=== PATIENT | male | born 1965 | race Caucasian/White ===

== ENCOUNTER 2016-07-07 11:34 | Emergency (ER) | payer OTHER ==
--- NOTE | 2016-07-07 12:10 | ERNOTE ---
Headache ER HPI - General Presenting Symptoms: headache Time Seen by Provider: 07/07/16 11:57 Source: patient Exam Limitations: no limitations - Immun/Allergies/Home Medications Immunizations: IMMUNIZATION HX Immunizations Up to Date Yes Allergies/Adverse Reactions: Allergies ampicillin [Ampicillin] Allergy (Verified 07/07/16 11:42) Home Medications: HOME MEDICATIONS Butalb/Acetaminophen/Caffeine [Fiorinal] 1 tab PO BID #30 tablet 07/07/16 [Last Taken Unknown] - History of Present Illness Narrative: left sided migraine headache with photophobia and some left eye lacrimation for two days Review of Systems - Review of Systems Constitutional: Present: no symptoms reported EYE: Present: see HPI ENT: Present: no symptoms reported Respiratory: Present: no symptoms reported Cardiology: Present: no symptoms reported Gastrointestinal/Abdominal: Present: no symptoms reported Genitourinary: Present: no symptoms reported Musculoskeletal: Present: no symptoms reported Neurological: Present: See HPI - Patient's Past Medical History Patient History - Medical: Headache, Migraines, Other Patient History - Cardiac/Respiratory: Other Patient History - Cancer: No Hx of Cancer Patient History - Surgical Procedures: Other - Social History Smoking Status: Current every day smoker Have you smoked in the past 12 months: Yes - Immunizations Immunizations Up to Date: Yes Physical Exam - Physical Exam General Appearance: Present: wd/wn, alert, no apparent distress Eye Exam: Normal inspection: left - lacrimating from left eye, PERRL: bilateral , EOMI: bilateral Ears, Nose, Throat: Present: normal ENT inspection, normal pharynx Neck: Present: normal inspection, nontender, supple Respiratory: Present: no respiratory distress, normal breath sounds, no accessory muscle use, chest nontender, lungs clear Cardiovascular/Chest: Present: regular rate, rhythm, no murmur, normal peripheral pulses Extremity Exam: Present: normal inspection, non-tender, normal range of motion Neurological Exam: Present: alert, oriented, normal mood/affect, medical claims analyst II-XII nml as tested ED Progress - Vital Signs Patient's Vital Signs:: I have reviewed the patient's vital signs. Vital Signs: Vital Signs 07/07/16 11:39 Temperature 36.6 C Pulse Rate 80 Respiratory 14 Rate Blood Pressure 133/79 O2 Sat by Pulse 100 Oximetry - Progress/Reassessment Chief Complaint: Headache Departure Clinical Impression: Migraine Qualifiers: Migraine type: unspecified Status migrainosus presence: without status migrainosus Intractability: not intractable Qualified Code(s): G43.909 - Migraine, unspecified, not intractable, without status migrainosus - Departure Disposition: Home self-care Condition: Good Instructions: Migraine Headache, [place] Prescriptions: Butalb/Acetaminophen/Caffeine [Fiorinal] 1 tab PO BID #30 tablet
[2016-07-07] MEDS ORDERED: KETOROLAC TROMETHAMINE 60 MG/2 ML VIAL IM ONE ×2 (12:18→12:33)
[2016-07-07 12:59] VITALS: BP 111/79
== END 2016-07-07 12:51 | disposition home or self-care (01) ==
LOC: ER 11:34
DX: G43.909 Migraine, unspecified, not intractable, without status migrainosus (principal); Z72.0 Tobacco use

== ENCOUNTER 2018-04-26 00:18 | Observation (INO) ==
--- NOTE | 2018-04-26 00:27 | ERNOTE ---
<Guillermo Haas - Last Filed: 04/26/18 07:48> Psychological HPI - General Chief Complaint: Drug Overdose Source: Reports: EMS Exam Limitations: Reports: clinical condition - Immun/Allergies/Home Medications Allergies/Adverse Reactions: Allergies Penicillins Allergy (Severe, Verified 04/26/18 00:33) Shortness of Breath ampicillin [Ampicillin] Allergy (Intermediate, Verified 04/26/18 00:33) Rash Home Medications: HOME MEDICATIONS Butalb/Acetaminophen/Caffeine [Fiorinal] 1 tab PO BID #30 tablet 07/07/16 [Last Taken Unknown] Diltiazem HCl [Diltiazem 24Hr Cd] 120 mg PO DAILY 07/07/16 [Last Taken Unknown] FLUoxetine HCL [Fluoxetine HCl] 20 mg PO DAILY 07/07/16 [Last Taken Unknown] QUEtiapine FUMARATE [Seroquel] 100 mg PO DAILY 07/07/16 [Last Taken Unknown] Benzonatate [Tessalon Perle] 100 mg PO TID #30 cap 04/07/18 [Last Taken Unknown] Doxycycline Hyclate [Vibratab] 100 mg PO BID #20 tab 04/07/18 [Last Taken Unknown] - History of Present Illness Narrative: Pt told EMS that he took 3 handsful of Seroquel 100mg tablets approx 1 hour [employer]. He has also been drinking alcohol of unknown quantity. Time Seen by Provider: 04/26/18 00:23 Arrived by: Reports: ambulance, called by friend/other Onset/duration: Reports: sudden onset Intent: Reports: suicide Mechanism: Reports: overdose Prior Treament: Reports: similar symptoms before Review of Systems - Narrative Narrative: ROS unavailable due to pt's decreased mental status Medical History (Last Reviewed 04/26/18 @ 03:25 by Guillermo Haas DO) Bipolar 1 disorder Depression PTSD (post-traumatic stress disorder) TBI (traumatic brain injury) Surgical History: Surgical History (Last Reviewed 04/26/18 @ 03:25 by Guillermo Haas DO) History of radiofrequency ablation procedure for cardiac arrhythmia Family History: Family History (Last Reviewed 04/26/18 @ 03:25 by Guillermo Haas DO) Mother Heart problem Social History: Preferred Language Palestinian Smoking Status Current every day smoker No Social History Section defined Psychological Exam - Exam General Appearance: Present: lethargic - continues to be able to secure his own airway. Head Exam: Present: normal inspection, no evidence of injury Neurological: Present: responds to pain Behavior/Eye Contact/Speech: Present: avoids eye contact - keeps eyes closed generally Ears, Nose, Throat: Present: normal ENT inspection Neck: Present: normal inspection, nontender, supple Respiratory: Present: no respiratory distress, no accessory muscle use Cardiovascular/Chest: Present: regular rate, rhythm, no murmur Gastrointestinal/Abdominal: Present: normal bowel sounds, no organomegaly Extremity Exam: Present: normal inspection, normal range of motion, no edema Skin Exam: Present: normal color, warm/dry Lymphatic Exam: Present: no adenopathy Progress - Results and Orders Patient's Lab Results:: I have reviewed the patient's lab results. Results and Orders: Laboratory Tests 04/26/18 04/26/18 04/26/18 00:38 00:38 00:53 WBC 6.2 Hgb 12.2 L Hct 36.9 L Plt Count 218 Sodium 145 H Potassium 3.4 Chloride 107 H BUN 10 Creatinine 0.61 Random Glucose 96 Calcium 8.3 AST 16 ALT 16 L Urine pH 6.0 Ur Specific [place] <=1.005 Urine Blood Negative Urine Nitrate Negative Ur Leukocyte Esterase Negative Salicylates 3.0 Urine Opiates Screen Acetaminophen Less than 0.2 L Barbiturate Screen Ur Phencyclidine Scrn Urine Amphetamine U Benzodiazepines Scrn Urine Cocaine Screen Urine Marijuana (THC) Ethyl Alcohol 76.0 H 04/26/18 00:53 WBC Hgb Hct Plt Count Sodium Potassium Chloride BUN Creatinine Random Glucose Calcium AST ALT Urine pH Ur Specific [place] Urine Blood Urine Nitrate Ur Leukocyte Esterase Salicylates Urine Opiates Screen Negative Acetaminophen Barbiturate Screen Negative Ur Phencyclidine Scrn Negative Urine Amphetamine Negative U Benzodiazepines Scrn Negative Urine Cocaine Screen Negative Urine Marijuana (THC) Positive H Ethyl Alcohol - Vital Signs Patient's Vital Signs:: I have reviewed the patient's vital signs. - EKG EKG #1 EKG: NSR, premature ventricular contraction EKG read: Interp. by me - Progress/Reassessment Progress Note-Subjective: 04/26/18 07:[address] Cee at the [facility] and was willing to accept the patient but the patient was not able to wake up enough to make the decision to go voluntarily. Dr. Cee stated that as soon as the patient is awake enough to make that decision they will talk with us again. 04/26/18 07:[address] Stover at shift change pending pt becoming awake enough to make a decision on voluntarily going to the [facility] for psychiatric care. - Transfer of Care Physician Sign Out: Guillermo Haas Receiving Physician: Aleksandar Stover Expected Disposition: Transfer Time Seen by Provider: 04/26/18 00:23 Departure Clinical Impression: Depression Deliberate medication overdose Qualifiers: Encounter type: initial encounter Qualified Code(s): T50.902A - Poisoning by unspecified drugs, medicaments and biological substances, intentional self-harm, initial encounter - Departure Disposition: Still a patient Condition: Fair <Aleksandar Stover - Last Filed: 04/26/18 09:33> Medical History (Last Reviewed 04/26/18 @ 03:25 by Guillermo Haas DO) Bipolar 1 disorder Depression PTSD (post-traumatic stress disorder) TBI (traumatic brain injury) Surgical History: Surgical History (Last Reviewed 04/26/18 @ 03:25 by Guillermo Haas DO) History of radiofrequency ablation procedure for cardiac arrhythmia Family History: Family History (Last Reviewed 04/26/18 @ 03:25 by Guillermo Haas DO) Mother Heart problem Social History: Preferred Language Palestinian Smoking Status Current every day smoker Alcohol Use occasionally Drug Use marijuana No Social History Section defined Progress - Results and Orders Patient's Lab Results:: I have reviewed the patient's lab results. - Vital Signs Patient's Vital Signs:: I have reviewed the patient's vital signs. Vital Signs: Vital Signs 04/26/18 01:37 04/26/18 01:48 04/26/18 02:02 Pulse Rate 82 81 81 Respiratory Rate 12 12 13 Blood Pressure 102/64 109/71 97/51 O2 Sat by Pulse Oximetry 96 96 95 04/26/18 02:17 04/26/18 02:28 04/26/18 02:37 Pulse Rate 77 80 78 Respiratory Rate 12 12 12 Blood Pressure 100/58 106/59 97/56 O2 Sat by Pulse Oximetry 98 98 97 04/26/18 03:04 04/26/18 03:19 04/26/18 03:30 Pulse Rate 74 72 75 Respiratory Rate 12 12 12 Blood Pressure 94/52 91/54 97/55 O2 Sat by Pulse Oximetry 97 97 97 04/26/18 03:37 04/26/18 03:51 04/26/18 03:58 Pulse Rate 73 76 78 Respiratory Rate 12 12 12 Blood Pressure 88/52 L 98/59 106/66 O2 Sat by Pulse Oximetry 97 97 97 04/26/18 04:11 04/26/18 04:28 04/26/18 04:32 Pulse Rate 73 78 72 Respiratory Rate 12 12 12 Blood Pressure 107/67 102/62 126/80 O2 Sat by Pulse Oximetry 97 98 98 04/26/18 04:45 04/26/18 04:58 04/26/18 05:08 Pulse Rate 69 69 99 Respiratory Rate 13 12 19 Blood Pressure 112/74 114/76 124/60 O2 Sat by Pulse Oximetry 97 97 100 04/26/18 05:18 04/26/18 05:29 04/26/18 05:49 Pulse Rate 98 81 67 Respiratory Rate 15 14 12 Blood Pressure 103/56 105/56 120/70 O2 Sat by Pulse Oximetry 98 96 04/26/18 06:03 04/26/18 06:24 04/26/18 06:58 Pulse Rate 73 68 71 Respiratory Rate 12 14 17 Blood Pressure 112/65 121/75 129/85 O2 Sat by Pulse Oximetry 97 97 98 04/26/18 07:10 04/26/18 07:50 04/26/18 08:23 Pulse Rate 70 68 81 Respiratory Rate 13 25 H Blood Pressure 117/71 115/75 O2 Sat by Pulse Oximetry 96 96 04/26/18 09:06 Pulse Rate 71 Respiratory Rate 16 Blood Pressure 97/57 O2 Sat by Pulse Oximetry 99 - Progress/Reassessment Progress Note-Subjective: 04/26/18 09:30 Patient handed over to me at shift change. He is protecting his airway but very somnolent. He is going to need medical observation and clearance before transfer to psychiatric facility. D/W Dr Casanova who will admit to the [facility] for medical observation and stabilization with plan on psychiatric transfer once that is achieved. Poison control had been notified aralier. Please see Dr Haas's note for H&P/overnight course.
[2018-04-26 00:41] LABS: Hematocrit 36.9 % (42.0-52.0); Hemoglobin 12.2 gm/dL (13.5-18.0); Mean Cell Volume 93.7 fl (78-100); Mean Corpuscular Hgb Conc 33.1 g/dl (32-36); Mean Platelet Volume 9.8 fl (8-11.3); Neutrophil # 4.5 K/mm3 (1.3-6.0); Neutrophil % 71.6 % (42-75.0); Platelet Count 218 K/mm3 (150-450); Red Blood Count 3.94 M/mm3 (4.7-6.0); Red Cell Distribution Width 12.4 % (11.5-14.0); White Blood Count 6.2 K/mm3 (4.0-10.5)
[2018-04-26 00:55] LABS: ALT 16 U/L (19-67); AST 16 U/L (0-48); Albumin * 3.7 gm/dl (3.4-5.0); Alkaline Phosphatase * 56 U/L (50-170); Anion Gap 15.6 mmol/L (6.8-13.8); BUN/Creatinine Ratio 16.4 (9.0-21.6); Bilirubin, Total 0.4 mg/dL (0.0-1.1); Blood Urea Nitrogen 10 mg/dL (6-23); Ca. Corrected For Albumin 8.2 mg/dL (8.4-10.2); Calcium * 8.3 mg/dL (7.9-10.9); Carbon Dioxide 25.8 mmol/L (24-32.6); Chloride 107 mmol/L (97-106); Glucose * 96 mg/dL (70-110); Potassium 3.4 mmol/L (3.4-4.6); Sodium 145 mmol/L (132-142); Total Protein 6.5 gm/dL (6.2-8.2)
[2018-04-26] MEDS ORDERED: PROCHLORPERAZINE EDISYLATE 5 MG/ML VIAL IV ONE (00:58)
[2018-04-26 00:59] LABS: Urine Bilirubin Negative (NEGATIVE); Urine Blood Negative /ul (NEGATIVE); Urine Ketone Negative (NEGATIVE); Urine Nitrite Negative (NEGATIVE); Urine Protein Negative (NEGATIVE); Urine Specific Gravity <=1.005 SP.GR. (1.005-1.030); Urine Urobilinogen Normal (NORMAL)
[2018-04-26] MEDS ORDERED: NORMAL SALINE 1,000 ML IV ONE ×4 (00:59→09:08)
[2018-04-26] MEDS ORDERED: PROCHLORPERAZINE EDISYLATE 5 MG/ML VIAL ONE (01:00)
[2018-04-26 01:04] LABS: Urine Appearance Clear (CLEAR); Urine Bacteria TRACE; Urine Color Pale Yellow; Urine RBC None Seen /hpf (0-5); Urine WBC None Seen /hpf (0-5)
[2018-04-26 01:21] LABS: Cocaine Ur Negative (NEGATIVE); Urine Barbiturate Negative (NEGATIVE); Urine Benzodiazepines Negative (NEGATIVE); Urine Opiates Negative (NEGATIVE); Urine PCP Negative (NEGATIVE); Urine THC Positive (NEGATIVE)
[2018-04-26 13:27] LABS: Albumin * 3.2 gm/dl (3.4-5.0); BUN/Creatinine Ratio 15.9 (9.0-21.6); Bilirubin, Total 0.5 mg/dL (0.0-1.1); Ca. Corrected For Albumin 8.6 mg/dL (8.4-10.2); Calcium * 8.3 mg/dL (7.9-10.9); Carbon Dioxide 25.9 mmol/L (24-32.6); Potassium 3.9 mmol/L (3.4-4.6); Total Protein 5.8 gm/dL (6.2-8.2)
--- NOTE | 2018-04-26 14:20 | HP ---
Chief Complaint - Chief Complaint Date of Service: 04/26/18 Time of Service: 12:30 Chief Complaint: Drug overdose, Suicide attempt History of Present Illness: 53-year-old male with a past medical history of bipolar disorder, PTSD, depress ion, traumatic brain injury presents with altered mentation status post suicide attempt with drug overdose. His is at bedside and states that around 10 PM he started behaving differently. He went upstairs and she fallen after him. When they were in bed he said "I hope you will forgive me for what I did"and " I just want to sleep and not wake up" when she provided him and he finally admitte d to overdosing on his Seroquel and stated that he took 3 handfuls of p emergency department he wasills. At that point she called 911 and the police came and brought him to the emergency department. states that he was upset about the way their marriage was going. In the emergency department he was somnolent and unable to make any decisions. [facility] the patient once he was awake and able to voluntarily except inpatient psych care. Medical History (Last Reviewed 04/26/18 @ 11:10 by Janice Flores RN) Bipolar 1 disorder Depression PTSD (post-traumatic stress disorder) TBI (traumatic brain injury) Surgical History: Surgical History (Last Reviewed 04/26/18 @ 11:15 by Janice Flores RN) History of radiofrequency ablation procedure for cardiac arrhythmia Family History: Family History (Last Reviewed 04/26/18 @ 11:15 by Janice Flores RN) Mother Heart problem Brother brother paacemaker Social History: Patient Lives/Resources With Spouse Utilized Occupation retired vet. Preferred Language Mongolian Do you have any confucianism or No cultural preference? Smoking Status Current every day smoker Have you smoked in the past 12 Yes months Do you dip or chew tobacco No Alcohol Use occasionally Drug Use marijuana No Social History Section defined Review Of Systems (GEN) - Review of Systems Generalized/Overall Review: Present: Fatigue Respiratory: Absent: Shortness of Breath Cardiac: Absent: Chest Pain Abdominal: Absent: Abdominal Pain Neurological: Present: Depressed Misc: All systems neg except as marked Immunizations: IMMUNIZATION HX Immunizations Up to Date Yes History of Influenza Vaccine Yes Hx Pneumococcal Vaccination Yes Allergies/Adverse Reactions: Allergies Allergy/AdvReac Type Severity Reaction Status Date / Time Penicillins Allergy Severe Shortness Verified 04/26/18 00:33 of Breath ampicillin [Ampicillin] Allergy Intermediate Rash Verified 04/26/18 00:33 Home Medications: HOME MEDICATIONS Butalb/Acetaminophen/Caffeine [Fiorinal] 1 tab PO BID #30 tablet 07/07/16 [Last Taken Unknown] Diltiazem HCl [Diltiazem 24Hr Cd] 120 mg PO DAILY 07/07/16 [Last Taken Unknown] FLUoxetine HCL [Fluoxetine HCl] 40 mg PO DAILY 07/07/16 [Last Taken Unknown] QUEtiapine FUMARATE [Seroquel] 150 mg PO HS 07/07/16 [Last Taken Unknown] Benzonatate [Tessalon Perle] 100 mg PO TID #30 cap 04/07/18 [Last Taken Unknown] Cholecalciferol (Vitamin D3) [Vitamin D] 4,000 unit PO DAILY 04/26/18 [Last Taken Unknown] Doxycycline Hyclate [Vibratab] 100 mg PO BID 04/26/18 [Last Taken Unknown] Sildenafil Citrate [Viagra] 12.5 mg PO DAILY PRN 04/26/18 [Last Taken Unknown] Exam - Exam Vital Signs: Vital Signs - Last Taken Temp 36.8 C 04/26/18 13:30 Pulse 64 04/26/18 13:30 Resp 12 04/26/18 13:30 BP 121/81 04/26/18 13:30 Pulse Ox 96 04/26/18 13:30 Constitutional: Present: Oriented x3, Cooperative, Well developed, Well nourished, No distress, Lethargic, Middle aged ENT Exam: Present: hearing grossly normal Eye Exam: left eye: normal inspection Neck: Present: non-tender. Absent: lymphadenopathy (R), lymphadenopathy (L) Back Exam: Present: normal inspection Respiratory: Present: lungs clear, normal breath sounds, no respiratory distress, No wheezing. Absent: crackles, rhonchi Cardiovascular/Chest: Present: normal peripheral pulses, regular rate, rhythm, no edema, no murmur Peripheral Pulses: dorsalis-pedis (R): 2+, dorsalis-pedis (L): 2+ Abdomen: Present: Normal bowel sounds, soft, nontender Extremity: Present: non-tender, no pedal edema Skin Exam: Present: normal color, warm/dry Neurologic: Present: oriented x 3 Appearance: Present: appropriate appearance, appropriate insight Eye contact: Present: cooperative Diagnostic Studies: Abnormal Lab Results 04/26/18 04/26/18 04/26/18 Range/Units 00:38 00:38 00:53 RBC 3.94 L (4.7-6.0) M/mm3 Hgb 12.2 L (13.5-18.0) gm/dL Hct 36.9 L (42.0-52.0) % Lymphocytes % 17.9 L (20-51) % Eosinophils % 4.8 H (0.0-3.0) % Lymphocytes # 1.11 L (1.5-3.5) k/mm3 Sodium 145 H (132-142) mmol/L Plasma Sodium 145 H (130-142) mmol/L Chloride 107 H (97-106) mmol/L Anion Gap 15.6 H (6.8-13.8) mmol/L Est GFR (Non-Af Amer) 148 H D (60-130) mL/min Calcium Adj for Albumin 8.2 L (8.4-10.2) mg/dL ALT 16 L (19-67) U/L Total Protein (6.2-8.2) gm/dL Albumin (3.4-5.0) gm/dl Acetaminophen Less than 0.2 L (10.0-30.0) mcg/mL Urine Marijuana (THC) Positive H (NEGATIVE) Ethyl Alcohol 76.0 H (0.0-10.0) mg/dL 04/26/18 Range/Units 13:10 RBC (4.7-6.0) M/mm3 Hgb (13.5-18.0) gm/dL Hct (42.0-52.0) % Lymphocytes % (20-51) % Eosinophils % (0.0-3.0) % Lymphocytes # (1.5-3.5) k/mm3 Sodium 144 H (132-142) mmol/L Plasma Sodium 144 H (130-142) mmol/L Chloride 109 H (97-106) mmol/L Anion Gap (6.8-13.8) mmol/L Est GFR (Non-Af Amer) (60-130) mL/min Calcium Adj for Albumin (8.4-10.2) mg/dL ALT 14 L (19-67) U/L Total Protein 5.8 L (6.2-8.2) gm/dL Albumin 3.2 L (3.4-5.0) gm/dl Acetaminophen (10.0-30.0) mcg/mL Urine Marijuana (THC) (NEGATIVE) Ethyl Alcohol (0.0-10.0) mg/dL Laboratory Results WBC 6.2 K/mm3 (4.0-10.5) 04/26/18 00:38 RBC 3.94 M/mm3 (4.7-6.0) L 04/26/18 00:38 Hgb 12.2 gm/dL (13.5-18.0) L 04/26/18 00:38 Hct 36.9 % (42.0-52.0) L 04/26/18 00:38 MCV 93.7 fl (78-100) 04/26/18 00:38 MCH 31.0 pg (27-31) 04/26/18 00:38 MCHC 33.1 g/dl (32-36) 04/26/18 00:38 RDW 12.4 % (11.5-14.0) 04/26/18 00:38 Plt Count 218 K/mm3 (150-450) 04/26/18 00:38 MPV 9.8 fl (8-11.3) 04/26/18 00:38 Immature Gran % (Auto) 0.20 % (0.001-0.429) 04/26/18 00:38 Immature Gran # (Auto) 0.01 K/mm3 (0.000-0.0310) 04/26/18 00:38 Neutrophils % 71.6 % (42-75.0) 04/26/18 00:38 Lymphocytes % 17.9 % (20-51) L 04/26/18 00:38 Monocytes % 5.2 % (0.0-9) 04/26/18 00:38 Eosinophils % 4.8 % (0.0-3.0) H 04/26/18 00:38 Basophils % 0.3 % (0.0-1.0) 04/26/18 00:38 Nucleated RBC % 0.0 k/mm3 (0-1) 04/26/18 00:38 Neutrophils # 4.5 K/mm3 (1.3-6.0) 04/26/18 00:38 Lymphocytes # 1.11 k/mm3 (1.5-3.5) L 04/26/18 00:38 Monocytes # 0.3 k/mm3 (0.0-1.0) 04/26/18 00:38 Eosinophils # 0.3 k/mm3 (0.0-0.7) 04/26/18 00:38 Absolute Basophils 0.0 k/mm3 (0.0-0.1) 04/26/18 00:38 Sodium 144 mmol/L (132-142) H 04/26/18 13:10 Plasma Sodium 144 mmol/L (130-142) H 04/26/18 13:10 Potassium 3.9 mmol/L (3.4-4.6) 04/26/18 13:10 Chloride 109 mmol/L (97-106) H 04/26/18 13:10 Carbon Dioxide 25.9 mmol/L (24-32.6) 04/26/18 13:10 Anion Gap 13.0 mmol/L (6.8-13.8) 04/26/18 13:10 BUN 11 mg/dL (6-23) 04/26/18 13:10 Creatinine 0.69 mg/dL (0.4-1.4) 04/26/18 13:10 Est GFR (Non-Af Amer) 128 mL/min (60-130) 04/26/18 13:10 BUN/Creatinine Ratio 15.9 (9.0-21.6) 04/26/18 13:10 Random Glucose 78 mg/dL (70-110) 04/26/18 13:10 Calcium 8.3 mg/dL (7.9-10.9) 04/26/18 13:10 Calcium Adj for Albumin 8.6 mg/dL (8.4-10.2) 04/26/18 13:10 Total Bilirubin 0.5 mg/dL (0.0-1.1) 04/26/18 13:10 AST 14 U/L (0-48) 04/26/18 13:10 ALT 14 U/L (19-67) L 04/26/18 13:10 Alkaline Phosphatase 54 U/L (50-170) 04/26/18 13:10 Total Protein 5.8 gm/dL (6.2-8.2) L 04/26/18 13:10 Albumin 3.2 gm/dl (3.4-5.0) L 04/26/18 13:10 Urine Color Pale yellow 04/26/18 00:53 Urine Appearance Clear (CLEAR) 04/26/18 00:53 Urine pH 6.0 pH (5.0-7.0) 04/26/18 00:53 Ur Specific [place] <=1.005 SP.GR. (1.005-1.030) 04/26/18 00:53 Urine Protein Negative mg/dL (NEGATIVE) 04/26/18 00:53 Urine Glucose (UA) Negative mg/dL (NEGATIVE) 04/26/18 00:53 Urine Ketones Negative mg/dL (NEGATIVE) 04/26/18 00:53 Urine Blood Negative /ul (NEGATIVE) 04/26/18 00:53 Urine Nitrate Negative (NEGATIVE) 04/26/18 00:53 Urine Bilirubin Negative mg/dl (NEGATIVE) 04/26/18 00:53 Urine Urobilinogen Normal EU/dl (NORMAL) 04/26/18 00:53 Ur Leukocyte Esterase Negative /ul (NEGATIVE) 04/26/18 00:53 Urine RBC None seen /hpf (0-5) 04/26/18 00:53 Urine WBC None seen /hpf (0-5) 04/26/18 00:53 Ur Epithelial Cells None seen /hpf (0-5) 04/26/18 00:53 Urine Bacteria Trace (NONE) 04/26/18 00:53 Urine Culture Comments Culture to follow 04/26/18 00:53 Salicylates 3.0 mg/dL (2.8-20.0) 04/26/18 00:38 Urine Opiates Screen Negative (NEGATIVE) 04/26/18 00:53 Acetaminophen Less than 0.2 mcg/mL (10.0-30.0) L 04/26/18 00:38 Barbiturate Screen Negative (NEGATIVE) 04/26/18 00:53 Ur Phencyclidine Scrn Negative (NEGATIVE) 04/26/18 00:53 Urine Amphetamine Negative (NEGATIVE) 04/26/18 00:53 U Benzodiazepines Scrn Negative (NEGATIVE) 04/26/18 00:53 Urine Cocaine Screen Negative (NEGATIVE) 04/26/18 00:53 Urine Marijuana (THC) Positive (NEGATIVE) H 04/26/18 00:53 Ethyl Alcohol 76.0 mg/dL (0.0-10.0) H 04/26/18 00:38 Assessment/Plan - Narrative Narrative: 53-year-old male with a past medical history of bipolar disorder, PTSD, depression, traumatic brain injury presents with altered mentation status post suicide attempt with drug overdose. His is at bedside and states that around 10 PM he started behaving differently. He went upstairs and she fallen after him. When they were in bed he said "I hope you will forgive me for what I did"and " I just want to sleep and not wake up" when she provided him and he finally admitted to overdosing on his Seroquel and stated that he took 3 handfuls of p emergency department he wasills. At that point she called 911 and the police came and brought him to the emergency department. states that he was upset about the way their marriage was going. In the emergency department he was somnolent and unable to make any decisions. [facility] the patient once he was awake and able to voluntarily except inpatient psych care. - Assessment/Plan (1) Drug overdose, intentional Problem: Acute Qualifiers: Encounter type: initial encounter Qualified Code(s): T50.902A - Poisoning by unspecified drugs, medicaments and biological substances, intentional self- harm, initial encounter (2) Suicide attempt Problem: Acute
[2018-04-26] MEDS ORDERED: NORMAL SALINE 1,000 ML IV PRN (14:26)
--- NOTE | 2018-04-26 17:07 | DS ---
(1) Drug overdose, intentional Problem: Resolved Qualifiers: Encounter type: initial encounter Qualified Code(s): T50.902A - Poisoning by unspecified drugs, medicaments and biological substances, intentional self- harm, initial encounter (2) Suicide attempt Problem: Acute Description of Stay: 53-year-old male with a past medical history of bipolar disorder, PTSD, depression, traumatic brain injury presents with altered mentation status post suicide attempt with drug overdose. His is at bedside and states that around 10 PM he started behaving differently. He went upstairs and she fallen after him. When they were in bed he said "I hope you will forgive me for what I did"and " I just want to sleep and not wake up" when she provided him and he finally admitted to overdosing on his Seroquel and stated that he took 3 handfuls of p emergency department he wasills. At that point she called 911 and the police came and brought him to the emergency department. states that he was upset about the way their marriage was going. In the emergency department he was somnolent and unable to make any decisions. [facility] was contacted and Dr. Almanza was willing to accept the patient once he was awake and able to voluntarily except inpatient psych care. I spoke with the [facility] inpatient psychiatric physicians Dr. Morris and Dr. Jean and in the accepted the patient for inpatient psychiatric treatment. The patient wants to voluntarily admit himself to the psychiatric unit at the [facility]. He is medically stable for transfer. Procedures Performed: none Results and Findings: Lab Pending Results 04/26/18 00:38: WBC 6.2, RBC 3.94 L, Hgb 12.2 L, Hct 36.9 L, MCV 93.7, MCH 31.0, MCHC 33.1, RDW 12.4, Plt Count 218, MPV 9.8, Immature Gran % (Auto) 0.20, Immature Gran # (Auto) 0.01, Neutrophils % 71.6, Lymphocytes % 17.9 L, Monocytes % 5.2, Eosinophils % 4.8 H, Basophils % 0.3, Nucleated RBC % 0.0, Neutrophils # 4.5, Lymphocytes # 1.11 L, Monocytes # 0.3, Eosinophils # 0.3, Absolute Basophils 0.0 04/26/18 00:38: Sodium 145 H, Plasma Sodium 145 H, Potassium 3.4, Chloride 107 H, Carbon Dioxide 25.8, Anion Gap 15.6 H, BUN 10, Creatinine 0.61, Est GFR (Non- Af Amer) 148 H D, BUN/Creatinine Ratio 16.4, Random Glucose 96, Calcium 8.3, Calcium Adj for Albumin 8.2 L, Total Bilirubin 0.4, AST 16, ALT 16 L, Alkaline Phosphatase 56, Total Protein 6.5, Albumin 3.7, Salicylates 3.0, Acetaminophen Less than 0.2 L, Ethyl Alcohol 76.0 H 04/26/18 00:53: Urine Color Pale yellow, Urine Appearance Clear, Urine pH 6.0, Ur Specific [place] <=1.005, Urine Protein Negative, Urine Glucose (UA) Negative, Urine Ketones Negative, Urine Blood Negative, Urine Nitrate Negative, Urine Bilirubin Negative, Urine Urobilinogen Normal, Ur Leukocyte Esterase Negative, Urine RBC None seen, Urine WBC None seen, Ur Epithelial Cells None seen, Urine Bacteria Trace, Urine Culture Comments Culture to follow 04/26/18 00:53: Urine Opiates Screen Negative, Barbiturate Screen Negative, Ur Phencyclidine Scrn Negative, Urine Amphetamine Negative, U Benzodiazepines Scrn Negative, Urine Cocaine Screen Negative, Urine Marijuana (THC) Positive H 04/26/18 13:10: Sodium 144 H, Plasma Sodium 144 H, Potassium 3.9, Chloride 109 H, Carbon Dioxide 25.9, Anion Gap 13.0, BUN 11, Creatinine 0.69, Est GFR (Non-Af Amer) 128, BUN/Creatinine Ratio 15.9, Random Glucose 78, Calcium 8.3, Calcium Adj for Albumin 8.6, Total Bilirubin 0.5, AST 14, ALT 14 L, Alkaline Phosphatase 54, Total Protein 5.8 L, Albumin 3.2 L Disposition: Home self-care Condition: Fair Discharge Activity: Activity as tolerated Discharge Diet: General/regular food Complete Home Medications List: Complete Home Medication List: Butalb/Acetaminophen/Caffeine [Fiorinal] 1 tab PO BID #30 tablet 07/07/16 Diltiazem HCl [Diltiazem 24Hr Cd] 120 mg PO DAILY 07/07/16 FLUoxetine HCL [Fluoxetine HCl] 40 mg PO DAILY 07/07/16 QUEtiapine FUMARATE [Seroquel] 150 mg PO HS 07/07/16 Benzonatate [Tessalon Perle] 100 mg PO TID #30 cap 04/07/18 Cholecalciferol (Vitamin D3) [Vitamin D3] 4,000 unit PO DAILY 04/26/18 Doxycycline Hyclate [Vibratab] 100 mg PO BID 04/26/18 Sildenafil Citrate [Viagra] 12.5 mg PO DAILY PRN 04/26/18
[2018-04-27 00:26] VITALS: BP 121/74
== END 2018-04-27 00:15 ==
LOC: ER 00:18 → SCU 00:18
PROVIDERS: ADMIT Internal Medicine; ATTEND Internal Medicine
DX: T50.902A Poisoning by unspecified drugs, medicaments and biological substances, intentional self-harm, initial encounter
CPT/HCPCS: 36415; 80053; 80307; 80320; 80329; 81001; 85025; 87086; 93005; 94760; 96361; 96374; 99285; G0378; G0480; G0481